=== PATIENT | male | born 1965 | race Caucasian/White ===

== ENCOUNTER 2020-05-12 07:14 | Outpatient (CLI) | payer BC, SELFPAY ==
[2020-05-13 19:10] LABS: SARS-CoV-2 RNA PCR Negative
== END 2020-05-12 07:15 | disposition home or self-care (01) ==
PROVIDERS: PCP Nurse Practitioner Family; Visit Provider Nurse Practitioner Family
DX: Z20.828 Contact with and (suspected) exposure to other viral communicable diseases (principal)
CPT/HCPCS: 87635; C9803; U0003

== ENCOUNTER 2020-05-16 08:08 | Outpatient (CLI) | payer BC, SELFPAY ==
[2020-05-17 01:59] LABS: SARS-CoV-2 RNA PCR Negative
== END 2020-05-16 08:09 | disposition home or self-care (01) ==
LOC: CHSLAB 08:10
PROVIDERS: PCP Nurse Practitioner Family; Visit Provider Nurse Practitioner Family
DX: Z20.828 Contact with and (suspected) exposure to other viral communicable diseases (principal)
CPT/HCPCS: 87635; C9803; U0003